=== PATIENT | female | born 1955 | race African-American/Black ===

== ENCOUNTER 2024-09-04 19:40 | Emergency (ER) | payer OTHER ==
[~2024-09-04] VITALS: Ht 172.7 cm; Wt 181.0 kg
[2024-09-04 19:45] VITALS: O2SAT 96
[2024-09-04] MEDS: SODIUM CHLORIDE 0.9% 1,000 ML IV ONE ×2 (20:10→21:22)
[2024-09-04] MEDS ORDERED: CEFEPIME 2GM IN DEXT 5% 100ML IV ONE (20:15)
[2024-09-04] MEDS: VANCOMYCIN 1G PREMIX 200 ML IV ONE (20:17)
[2024-09-04] MEDS: ONDANSETRON HCL 4MG/2ML INJ IV ONE (20:22)
[2024-09-04] MEDS: MORPHINE SULFATE 4 MG/ML INJ (FOR IV/IM USE) IV ONE (20:23)
[2024-09-04 20:36] LABS: CARBON DIOXIDE 21 mEq/L (21-32); CHLORIDE 98 mEq/L (98-107); SODIUM 136 mEq/L (136-145)
[2024-09-04 20:41] LABS: CREATININE 1.6 mg/dL (0.6-1.0)
[2024-09-04 20:42] LABS: GLUCOSE 248 mg/dL (70-105); UREA NITROGEN BLOOD 12 mg/dL (9-23)
[2024-09-04 20:43] LABS: ALANINE AMINOTRANSFERASE 297 IU/L (10-49); ALBUMIN 3.6 g/dL (3.2-4.8); ASPARTATE AMINOTRANSFERASE 138 IU/L (<34)
[2024-09-04 20:44] LABS: BILIRUBIN TOTAL 5.5 mg/dL (0.1-1.0); PROTEIN TOTAL 6.1 g/dL (6.0-8.3)
[2024-09-04 20:45] LABS: HEMATOCRIT. 40.6 % (36.0-48.0); MEAN CORPUSCULAR HEMOGLOBIN 29.7 pg (28.0-32.0); MEAN CORPUSCULAR HGB CONC 31.9 g/dL (31.0-37.0); MEAN CORPUSCULAR VOLUME 93.2 fL (81.0-99.0); MEAN PLATELET VOLUME 10.2 fl (7.4-10.4); PLATELET 214 x1000/uL (130-400); RED BLOOD CELL COUNT 4.35 mill/uL (4.2-5.4); WHITE BLOOD COUNT 14.1 x1000/uL (4.5-11.0)
[2024-09-04 20:47] LABS: LACTIC ACID 8.5 mmol/L (0.4-2.0)
[2024-09-04 20:49] LABS: DIFFERENTIAL COMMENT 1
[2024-09-04 20:59] LABS: INR 1.3; PROTHROMBIN TIME 13.8 sec (9.6-11.0)
[2024-09-04] MEDS: CEFEPIME 2GM/50ML DUPLEX 50 ML IV NR (21:28)
[2024-09-04 21:34] LABS: PLATELET ESTIMATE NORMAL
[2024-09-04] MEDS: KCL 20MEQ/100ML PREMIX 100 ML IV SCH (21:54)
[2024-09-04 22:16] LABS: CLARITY URINE TURBID (CLEAR); COLOR URINE DARK YELLOW (YELLOW); GLUCOSE URINE 1+ (NEGATIVE); KETONES URINE NEGATIVE (NEGATIVE); LEUKOCYTE ESTERASE URINE NEGATIVE (NEGATIVE); NITRITE URINE NEGATIVE (NEGATIVE); OCCULT BLOOD URINE 3+ (NEGATIVE); PROTEIN URINE 3+ (NEGATIVE); UROBILINOGEN URINE 0.2 E.U./dL (0.2-1.0)
[2024-09-04 22:38] LABS: BACTERIA URINE 3+; SQUAMOUS EPITHELIAL CELL URINE 1+ /lpf (RARE/1+)
[2024-09-04 22:39] LABS: AMORPHOUS SEDIMENT URINE 1+ /lpf; RBC URINE 25-50 /hpf (0-2); WBC URINE 0-2 /hpf (0-2)
[2024-09-04] MEDS: IOHEXOL-300 100 ML BOTTLE ONE (23:12)
[2024-09-05] MEDS: NOREPINEPHRINE 8MG/250ML PMX 250 ML IV ONE ×2 (02:46→10:47)
[2024-09-05 05:00] VITALS: RESP 31
[2024-09-05 06:21] LABS: BG BASE EXCESS -6.7 mmol/L (-2.0-3.0); BG CARBOXYHEMOGLOBIN 0.4 % (0.5-1.5); BG DEOXYHEMOGLOBIN 0.3 % (0.0-5.0); BG FRACTION INSPIRED OXYGEN 100; BG HCO3 ACT 18.5 mmol/L (21.0-28.0); BG METHEMOGLOBIN 0.1 % (0.5-1.5); BG OXYGEN SATURATION 99.7 % (94.0-98.0); BG OXYHEMOGLOBIN 99.2 % (94.0-98.0); BG PCO2 36.3 mmHg (32.0-45.0); BG PH 7.326 (7.350-7.450); BG PO2 383.3 mmHg (83.0-108.0); BG SAMPLE SITE RIGHT RADIAL; BG VENT MODE MASK - BIPAP
[2024-09-05 09:05] VITALS: RESP 26
[2024-09-05 11:00] VITALS: BP 116/65; PULSE 108; RESP 32; TEMP 36.2; O2SAT 96
[2024-09-05] MEDS ORDERED: PIPERACILLIN/TAZO 3.375G/50ML 50 ML IV SCH (14:00)
== END 2024-09-05 11:47 | disposition short-term general hospital (02) ==
LOC: ER 19:40 → EDBEDREQ 20:48 → CANBEDREQ 09-05 07:38 → ER 09-05 11:47
DX: A41.9 Sepsis, unspecified organism (principal); R65.21 Severe sepsis with septic shock; E11.9 Type 2 diabetes mellitus without complications; I10 Essential (primary) hypertension; D25.9 Leiomyoma of uterus, unspecified; Z90.49 Acquired absence of other specified parts of digestive tract
CPT/HCPCS: 99291; 96366 ×2; 74177; 96365; 96375; 71045 ×2; 96367 ×2; 80076; 80048; 81003; 83880; 83605; 83690; 85025; 85610; 86850; 86900; 86901; 87040; 87086; 87186; 87077; 36415; 84145; 93005 ×2; 96368; 82805; 82375; 94660; 36600; Q9967; J0692; J2405; J3480; J3370; J2270; J7030; J3490